=== PATIENT | male | born 1995 | race Caucasian/White ===

== ENCOUNTER 2024-05-10 00:04 | Emergency (ER) | payer OTHER ==
[~2024-05-10] VITALS: Ht 188 cm; Wt 72.6 kg
[2024-05-10 00:47] VITALS: BP 112/59; TEMP 98.7; O2SAT 98
[2024-05-10] MEDS ORDERED: AMOX-430 PO (00:56)
[2024-05-10] MEDS ORDERED: TDAP [DIPH/PERTUSSIS/TET] 0.5 ML VIAL IM ONE (00:59)
[2024-05-10] MEDS ORDERED: AMOX/CLAVULANATE 875 MG TABLET ONE (00:59)
[2024-05-10] MEDS: AMOX/CLAVULANATE 875 MG TABLET PO ONE (01:02)
[2024-05-10] MEDS: TDAP [DIPH/PERTUSSIS/TET] 0.5 ML VIAL IM ONE (01:03)
== END 2024-05-10 01:08 | disposition home or self-care (01) ==
LOC: ER 00:16
DX: S61.452A Open bite of left hand, initial encounter (principal); W55.01XA Bitten by cat, initial encounter; Y93.89 Activity, other specified; Y92.89 Other specified places as the place of occurrence of the external cause; Y99.8 Other external cause status
CPT/HCPCS: 90715